=== PATIENT | female | born 2000 | race Caucasian/White ===

== ENCOUNTER → 2023-11-14 11:19 | Outpatient (REF) | payer OTHER, SELFPAY ==
[2023-11-14 14:12] LABS: Hepatitis B Surface Antibody Positive
[2023-11-16 15:58] LABS: Varicella Zoster IgG (VZV) Positive
== END ==
LOC: REG 11:19
PROVIDERS: ATTENDING PHYSICIAN Nurse Practitioner Family
DX: Z23 Encounter for immunization (principal)
CPT/HCPCS: 36415; 86706; 86787